=== PATIENT | male | born 1955 | race Caucasian/White ===

== ENCOUNTER 2022-04-23 08:30 | Outpatient (RCR) | payer MEDICARE, SELFPAY ==
--- NOTE | 2022-04-15 08:59 | URNOTE ---
Request received for authorization for Docetaxel (J9171) and Kyril (J1626). Prior authorization is not required for Docetaxel (J9171) per repRaymond Emery Ref#[id number]. Kytril (J1626) is approved #[id number] from 04/12/2022 to 04/12/2023 by Nir Martin notice of coverage is received via fax.
[2022-04-15 11:30] LABS: Basophils Absolute Auto 0.03 K/uL (0.00-0.30); Basophils Percent Auto 0.4 % (0.0-3.0); Hematocrit 40.9 % (37.0-53.0); Hemoglobin* 13.6 gm/dL (13.5-17.5); Lymphocytes Percent Auto 6.4 % (20-44); Mean Corpuscular HGB Conc 33 gm/dL (32-36); Mean Corpuscular Hemoglobin 32 pg (26-34); Mean Corpuscular Volume 96 fL (80-100); Neutrophils Percent Auto 92.2 % (42.0-72.0); Platelet Count* 428 K/uL (140-440); RDW Coefficient of Variation % 12.3 % (11.5-15.5); Red Blood Count 4.27 m/uL (4.30-5.90); White Blood Count* 7.05 K/uL (4.50-11.00)
[2022-04-15 11:32] LABS: Slide Review Reflex No
[2022-04-15 11:45] LABS: Albumin* 4.7 g/dL (3.3-5.0); Chloride* 104 mmol/L (96-114); Potassium* 4.2 mmol/L (3.6-5.1); Sodium* 137 mmol/L (135-149)
[2022-04-15 11:47] LABS: Creatinine* 0.8 mg/dL (0.5-1.5); Est. Creatinine Clearance* 71.25; Estimated Glomerular Filt Rate 98 ml/min
[2022-04-15 11:48] LABS: Alanine Aminotransferase* 23 U/L (4-50); Alkaline Phosphatase* 62 U/L (40-150); Aspartate Amino Transferase* 27 U/L (12-35); Bilirubin Total* 0.3 mg/dL (0.1-1.5); Blood Urea Nitrogen* 15 mg/dL (7-30); Carbon Dioxide* 25 mmol/L (20-32); Glucose* 120 mg/dL (60-115); Total Protein* 7.8 g/dL (6.0-8.3)
[2022-04-15 11:49] LABS: Calcium* 9.4 mg/dL (8.4-10.6)
[2022-04-16 08:40] VITALS: BP 113/70; PULSE 53; RESP 16; TEMP 36.2; O2SAT 100
[2022-04-16] MEDS: GRANISETRON 1 MG/ML inj IVP (09:50)
[2022-04-16] MEDS: diphenhydrAMINE 25 MG in 0.9 % SODIUM CHLORIDE 100 ml 100 ML 402 MG IVPB (09:51)
--- NOTE | 2022-04-16 12:57 | ONC.NURNOTE ---
New chemo start teaching with patient and his older brother reviewed after hours management, calling with at home symptoms not managed, fever management, reviewed contents of chemo education binder discussed self care at home and post chemotherapy home instructions questions addressed consents and MICHAEL signed
--- NOTE | 2022-04-16 13:00 | ONC.NURNOTE ---
PSDS = 0 no SS consult indicated ongoing symptoms noted for sleep issues and indigestion patient has xanax from his PCP
--- NOTE | 2022-04-17 15:54 | ONC.NURNOTE ---
Kiln Pusher called pt to follow up first adyquinn yesterday. Pt states he is doing well and has no concerns at this time.
[2022-04-22 08:46] LABS: Basophils Percent Auto 0.5 % (0.0-3.0); Eosinophils Percent Auto 0.2 % (0.0-7.0); Hematocrit 39.2 % (37.0-53.0); Hemoglobin* 13.1 gm/dL (13.5-17.5); Immature Granulocytes Pct Auto 0.2 %; Lymphocytes Percent Auto 6.7 % (20-44); Mean Corpuscular HGB Conc 33 gm/dL (32-36); Mean Corpuscular Hemoglobin 31 pg (26-34); Mean Corpuscular Volume 94 fL (80-100); Monocytes Percent Auto 2.6 % (0.0-11.0); Neutrophils Percent Auto 89.8 % (42.0-72.0); Platelet Count* 278 K/uL (140-440); Red Blood Count 4.17 m/uL (4.30-5.90); White Blood Count* 4.16 K/uL (4.50-11.00)
[2022-04-22 08:54] LABS: Slide Review Reflex No
[2022-04-22 09:02] LABS: Albumin* 4.2 g/dL (3.3-5.0); Chloride* 100 mmol/L (96-114)
[2022-04-22 09:03] LABS: Potassium* 4.2 mmol/L (3.6-5.1); Sodium* 133 mmol/L (135-149)
[2022-04-22 09:05] LABS: Alkaline Phosphatase* 54 U/L (40-150); Aspartate Amino Transferase* 20 U/L (12-35); Bilirubin Total* 0.5 mg/dL (0.1-1.5); Blood Urea Nitrogen* 15 mg/dL (7-30); Carbon Dioxide* 27 mmol/L (20-32); Creatinine* 0.8 mg/dL (0.5-1.5); Est. Creatinine Clearance* 69.69; Estimated Glomerular Filt Rate 98 ml/min; Total Protein* 6.9 g/dL (6.0-8.3)
[2022-04-22 09:06] LABS: Alanine Aminotransferase* 19 U/L (4-50); Glucose* 104 mg/dL (60-115)
[2022-04-23 08:00] VITALS: BP 118/69; PULSE 67; RESP 16; TEMP 35.6; O2SAT 100
[2022-04-23] MEDS: GRANISETRON 1 MG/ML inj IVP (09:17)
[2022-04-23] MEDS: 0.9 % SODIUM CHLORIDE 250 ml IV (09:51)
[2022-04-23] MEDS: SODIUM CHLORIDE 0.9 % (FLUSH) 10 ML SYRINGE IVF (09:59)
== END 2022-10-12 23:59 | disposition home or self-care (01) ==
LOC: CCIC 08:30
PROVIDERS: Clinical Nurse Specialist; PCP Internal Medicine Medical Oncology; Referring Provider Internal Medicine Medical Oncology; Visit Provider Internal Medicine Medical Oncology
DX: Z51.11 Encounter for antineoplastic chemotherapy (principal); C09.9 Malignant neoplasm of tonsil, unspecified
CPT/HCPCS: 36415; 80053; 85025; 96376; 96413; 99202; 99204; 99211; J1200; J1626; J7050; J9171